=== PATIENT | female | born 1940 | race Caucasian/White ===

== ENCOUNTER 2017-06-23 10:37 | Emergency (ER) | payer MEDICARE, OTHER ==
[~2017-06-23] VITALS: Ht 170.2 cm; Wt 107.0 kg
[~2017-06-23 10:37] MED LIST: ASPI81TA17 PO; CALC500T42 PO; CO Q100C9 PO; DICY1TAB26 PO; GLUC15002 PO; LISI30TA44 PO; MAGN250T13 PO; METO25CR PO; OMEG5CAP; OMEP20TA PO; VITA20003 PO; ZOCO20TA PO
[2017-06-23 10:39] VITALS: BP 151/67; PULSE 81; RESP 18; TEMP 98.3; O2SAT 96
[2017-06-23 11:00] VITALS: BP 143/71; PULSE 74; RESP 17; O2SAT 96
[2017-06-23] MEDS ORDERED: LISI30TA4 PO (11:07)
[2017-06-23] MEDS ORDERED: Chondroitin PO (11:07)
[2017-06-23] MEDS ORDERED: ASPI81CH37 CHEW (11:07)
[2017-06-23] MEDS ORDERED: METO25TA3 PO (11:07)
[2017-06-23] MEDS ORDERED: GLUC15009 PO (11:07)
[2017-06-23] MEDS ORDERED: METO50TA PO (11:07)
[2017-06-23] MEDS ORDERED: OMEP20TA PO (11:07)
[2017-06-23] MEDS ORDERED: SIMV20TA PO (11:07)
[2017-06-23] MEDS ORDERED: FISH1200 PO (11:07)
[2017-06-23] MEDS ORDERED: CALG500 PO (11:07)
[2017-06-23] MEDS ORDERED: CHOL20005 PO ×2 (11:07)
[2017-06-23] MEDS ORDERED: FISH1200 (11:07)
[2017-06-23] MEDS ORDERED: CHOL1CAP14 PO (11:07)
[2017-06-23] MEDS ORDERED: METR-1 PO (11:11)
[2017-06-23] MEDS ORDERED: CIPR500T2 PO (11:11)
--- NOTE | 2017-06-23 11:11 | PD ---
HPI Chief Complaint: Abdominal Pain Time Seen by Provider: 11:07 Travel History International Travel<30 days: No Contact w/Intl Traveler<30days: No Traveled to known affect area: No History of Present Illness HPI This is a 76-year-old female who has a history of recurring diverticulitis who presents to the emergency department with 3 days of left lower quadrant abdominal cramping, constant, moderate severity, associated with loose stools. She denies any fevers or chills and denies any vomiting. She said diverticulitis many times in the past and this feels exactly the same. She's never had a complication from it. She's had a cholecystectomy but no other bowel surgeries. She is otherwise healthy. She is a snowbird from [place]. She said she called her primary care physician on Saturday but they couldn't get her in. Otherwise she would not have come to the emergency department. PFSH Past Medical History Hx Anticoagulant Therapy: Yes (81 mg asa) Cardiovascular Problems: Yes High Cholesterol: Yes Diverticulitis: Yes Hypertension: Yes ?: Not Menopausal: Yes Past Surgical History Cholecystectomy: Yes Tonsillectomy: Yes Social History Alcohol Use: Yes ([facility]) Tobacco Use: No Substance Use: No Allergies-Medications (Allergen,Severity, Reaction): Coded Allergies: hydrocodone (Verified Allergy, Unknown, GI UPSET, 06/23/17) Reported Meds & Prescriptions Reported Meds & Active Scripts Active Review of Systems Except as stated in HPI: all other systems reviewed are Neg Physical Exam Narrative GENERAL:Well appearing, no acute distress SKIN: Focused skin assessment warm and dry. HEAD: Atraumatic. Normocephalic. EYES: Pupils equal and round. No injection or drainage. ENT: Moist mucous membranes NECK: Trachea midline. CARDIOVASCULAR: Regular rate and rhythm. No murmur appreciated. RESPIRATORY: Clear to auscultation. Breath sounds equal bilaterally. GASTROINTESTINAL: Abdomen soft, tender to palpation in the left lower quadrant with no guarding. MUSCULOSKELETAL: No obvious deformities. NEUROLOGICAL: Awake and alert. No obvious cranial nerve deficits. Moving all extremities. PSYCHIATRIC: Appropriate mood and affect; insight and judgment normal. Data Data Last Documented VS Vital Signs Date Time Temp Pulse Resp B/P (MAP) Pulse Ox O2 Delivery O2 Flow Rate FiO2 06/23/17 10:39 98.3 81 18 151/67 (95) 96 MDM Medical Decision Making Medical Screen Exam Complete: Yes Emergency Medical Condition: Yes Differential Diagnosis Diverticulitis, colitis, urinary tract infection, diverticular abscess, bowel obstruction Narrative Course This is a very well-appearing 76-year-old female who presents to the emergency department with left lower quadrant abdominal pain that feels exactly like her prior episodes of diverticulitis. She is afebrile and well-appearing. She feels like this is mild and in the past it's gotten much worse. She wanted to try to "address it early". At this point I don't think there is any reason to obtain labs or CT imaging. She appears quite well and I doubt that there is a surgical complication at this time. She'll be discharged on oral antibiotic therapy, clear liquid diet and she promises she'll return to the emergency department if her symptoms worsen. Diagnosis Primary Impression: Acute diverticulitis Patient Instructions: General Instructions Additional Instructions: Sometimes patients with diverticulitis require admission to the hospital for IV antibiotics. If you develop worsening or severe abdominal pain, persistent fevers, or inability to drink return to the emergency department. Follow a clear liquid diet for 3 days until you notice your symptoms improving, then slowly advance your diet. Complete your course of antibiotics. Follow up with your primary care physician as soon as possible to ensure you are improving. Med/Other Pt SpecificInfo: Prescription(s) given Scripts Metronidazole (Flagyl) 500 Mg Tab 500 MG PO TID for Infection for 7 Days, TAB 0 Refills Prov: Britt Hurtado MD 06/23/17 Ciprofloxacin (Ciprofloxacin) 500 Mg Tab 500 MG PO BID for Infection for 7 Days, #14 TAB 0 Refills Prov: Britt Hurtado MD 06/23/17 Disposition: 01 DISCHARGE HOME Condition: Stable Britt Hurtado MD Jun 23, 2017 11:11
== END 2017-06-23 11:29 | disposition home or self-care (01) ==
LOC: PHED 10:37
DX: K57.92 Diverticulitis of intestine, part unspecified, without perforation or abscess without bleeding (principal)
CPT/HCPCS: 99284

== ENCOUNTER 2017-08-28 07:51 | Emergency (ER) | payer MEDICARE, OTHER ==
[~2017-08-28] VITALS: Ht 170.2 cm; Wt 105.8 kg
[~2017-08-28 07:51] MED LIST changes: +ASPI81CH6 CHEW; -ASPI81TA17 PO; -CALC500T42 PO; +CALG500 PO; +CIPR500T2 PO; -CO Q100C9 PO; +Chondroitin PO; +D 50CAP2 PO; +D200CAP PO; -DICY1TAB26 PO; +FISH1200; +FISH1200 PO; -GLUC15002 PO; +GLUC15009 PO; +LISI30TA4 PO; -LISI30TA44 PO; -MAGN250T13 PO; -METO25CR PO; +METO25TA3 PO; +METO50TA PO; +METR-1 PO; -OMEG5CAP; -OMEP20TA PO; +OMEP20TA93 PO; +SIMV20TA PO; -VITA20003 PO; -ZOCO20TA PO
[2017-08-28 07:52] VITALS: BP 186/79; PULSE 89; RESP 16; TEMP 97.9; O2SAT 96
[2017-08-28 08:15] LABS: BILIRUBIN, URINE NEG (NEG); BLOOD, URINE NEG (NEG); GLUCOSE,URINE NEG (NEG); KETONE, URINE NEG (NEG); NITRITE,URINE NEG (NEG); URINE LEUKOCYTE ESTERASE NEG (NEG)
[2017-08-28] MEDS ORDERED: SODIUM CHLORID 0.9% 500 ML INJ 500 ML IV ONE (08:15)
[2017-08-28] MEDS ORDERED: SODIUM CHLORIDE 0.9% FLUSH 10 ML FLUSH IV FLUSH PRN (08:15)
--- NOTE | 2017-08-28 08:19 | PD ---
HPI Chief Complaint: GI Complaint Time Seen by Provider: 08:15 Travel History International Travel<30 days: No Contact w/Intl Traveler<30days: No Traveled to known affect area: No History of Present Illness HPI 77-year-old female patient with history of diverticulitis, presents to the ER today because she states that she has had a one-week history of constipation, and is now having a lot of discomfort which she states is currently fairly mild at the left lower quadrant area where her diverticulitis issues of been. She denies any vomiting, fevers, or any other symptoms. She states that she is worried that her diverticulitis may be acting up. She states that at the beginning of the week she had been on Cipro and amoxicillin, and then started having loose stools, and started taking probiotics but now she is constipated. Modifying Factors: None Associated Signs & Symptoms: Constipation, left lower quadrant abdominal pain Risk Factors: Diverticulitis PFSH Past Medical History Hx Anticoagulant Therapy: Yes (asa 81mg ) Atrial Fibrillation: Yes Heart Rhythm Problems: Yes Cardiovascular Problems: Yes (htn on meds, hx of a-fib) High Cholesterol: Yes Diverticulitis: Yes GERD: Yes Hypertension: Yes Immunizations Current: Yes (Shingles shot 2017) Tetanus Vaccination: < 5 Years Influenza Vaccination: Yes ?: Not Menopausal: Yes Dilation and Curettage (D&C): Yes (x1) Past Surgical History Cholecystectomy: Yes Ear Surgery: Yes (right inner cyst removed) Tonsillectomy: Yes Social History Alcohol Use: Yes (occas. wine) Tobacco Use: No (quit in the 's smoked cigs) Substance Use: No Allergies-Medications (Allergen,Severity, Reaction): Coded Allergies: hydrocodone (Verified Allergy, Unknown, GI UPSET, 08/28/17) Reported Meds & Prescriptions Reported Meds & Active Scripts Active Zofran Odt (Ondansetron Odt) 4 Mg Tab 4 Mg SL Q6HR PRN Ibuprofen 600 Mg Tab 600 Mg PO Q6H PRN Ciprofloxacin (Ciprofloxacin HCl) 500 Mg Tab 500 Mg PO BID 7 Days Flagyl (Metronidazole) 500 Mg Tab 500 Mg PO TID 7 Days Reported [Chondroitin] 1,200 PO DAILY Glucosamine 1,500 Mg Tab 1,500 Mg PO DAILY Calcium Gluconate 45 Mg Calcium (500 Mg) Tab 500 Mg PO DAILY 1 gram of salt is 93 mg elemental calcium. Fish Oil 1200 mg (Perkins-3 Fatty Acids) 360 Mg-1,200 Mg Cap 1,200 Mg PO BID D3 Super Strength (Cholecalciferol) 2,000 Unit Cap 2,000 Units PO BID Metoprolol Tartrate 50 Mg Tab 50 Mg PO DAILY Simvastatin 20 Mg Tab 20 Mg PO HS Lisinopril 30 Mg Tab 30 Mg PO DAILY Omeprazole 20 Mg Tab 20 Mg PO DAILY Aspirin Low Dose (Aspirin) 81 Mg Chew 81 Mg CHEW 2XWEEK Review of Systems Except as stated in HPI: all other systems reviewed are Neg Physical Exam Narrative GENERAL: Well-developed elderly white female patient currently in mild distress. Awake and oriented 3. SKIN: Focused skin assessment warm/dry. HEAD: Atraumatic. Normocephalic. EYES: Pupils equal and round. No scleral icterus. No injection or drainage. ENT: No nasal bleeding or discharge. Mucous membranes pink and moist. NECK: Trachea midline. No JVD. Supple. CARDIOVASCULAR: Regular rate and rhythm. No murmur appreciated. RESPIRATORY: No accessory muscle use. Clear to auscultation. Breath sounds equal bilaterally. GASTROINTESTINAL: Abdomen soft, mild left lower quadrant tenderness without guarding or rebound, nondistended. Hepatic and splenic margins not palpable. MUSCULOSKELETAL: No obvious deformities. No clubbing. No cyanosis. No edema. NEUROLOGICAL: Awake and alert. No obvious cranial nerve deficits. Motor grossly within normal limits. Normal speech. PSYCHIATRIC: Appropriate mood and affect; insight and judgment normal. Data Data Last Documented VS Vital Signs Date Time Temp Pulse Resp B/P (MAP) Pulse Ox O2 Delivery O2 Flow Rate FiO2 08/28/17 10:42 78 17 164/74 (104) 94 Room Air 08/28/17 07:52 97.9 Orders Orders Urinalysis - C+S If Indicated (08/28/17 07:53) Complete Blood Count With Diff (08/28/17 08:15) Comprehensive Metabolic Panel (08/28/17 08:15) Lipase (08/28/17 08:15) Ct Abd/Pel W Iv Contrast(Rout) (08/28/17 08:15) Iv Access Insert/Monitor (08/28/17 08:15) Ecg Monitoring (08/28/17 08:15) Oximetry (08/28/17 08:15) Sodium Chloride 0.9% Flush (Ns Flush) (08/28/17 08:15) Sodium Chlorid 0.9% 500 Ml Inj (Ns 500 M (08/28/17 08:15) Oral Contrast - Adult (08/28/17 08:22) Diatrizoate Liq ( Gastroview Liq) (08/28/17 08:38) Iohexol 350 Inj (Omnipaque 350 Inj) (08/28/17 10:20) Ed Discharge Order (08/28/17 10:47) Labs Laboratory Tests Test 08/28/17 08:03 08/28/17 09:10 Urine Color YELLOW Urine Turbidity CLEAR Urine pH 5.0 Urine Specific [place] 1.017 Urine Protein NEG mg/dL Urine Glucose (UA) NEG mg/dL Urine Ketones NEG mg/dL Urine Occult Blood NEG Urine Nitrite NEG Urine Bilirubin NEG Urine Leukocyte Esterase NEG Urine RBC 0-3 /hpf Urine WBC 3-5 /hpf Urine Squamous Epithelial Cells > 8 /hpf Urine Bacteria RARE /hpf Urine Hyaline Casts 0-2 /lpf Microscopic Urinalysis Comment CULT NOT INDICATED White Blood Count 11.0 TH/MM3 Red Blood Count 4.39 MIL/MM3 Hemoglobin 13.0 GM/DL Hematocrit 40.1 % Mean Corpuscular Volume 91.2 FL Mean Corpuscular Hemoglobin 29.6 PG Mean Corpuscular Hemoglobin Concent 32.5 % Red Cell Distribution Width 13.2 % Platelet Count 282 TH/MM3 Mean Platelet Volume 7.9 FL Neutrophils (%) (Auto) 65.8 % Lymphocytes (%) (Auto) 19.4 % Monocytes (%) (Auto) 10.8 % Eosinophils (%) (Auto) 3.4 % Basophils (%) (Auto) 0.6 % Neutrophils # (Auto) 7.2 TH/MM3 Lymphocytes # (Auto) 2.1 TH/MM3 Monocytes # (Auto) 1.2 TH/MM3 Eosinophils # (Auto) 0.4 TH/MM3 Basophils # (Auto) 0.1 TH/MM3 CBC Comment DIFF FINAL Differential Comment Blood Urea Nitrogen 20 MG/DL Creatinine 0.91 MG/DL Random Glucose 125 MG/DL Total Protein 6.8 GM/DL Albumin 2.7 GM/DL Calcium Level 8.4 MG/DL Alkaline Phosphatase 58 U/L Aspartate Amino Transf (AST/SGOT) 20 U/L Alanine Aminotransferase (ALT/SGPT) 34 U/L Total Bilirubin 0.4 MG/DL Sodium Level 137 MEQ/L Potassium Level 4.1 MEQ/L Chloride Level 104 MEQ/L Carbon Dioxide Level 27.7 MEQ/L Anion Gap 5 MEQ/L Estimat Glomerular Filtration Rate 60 ML/MIN Lipase 156 U/L MDM Medical Decision Making Medical Screen Exam Complete: Yes Emergency Medical Condition: Yes Medical Record Reviewed: Yes Interpretation(s) Laboratory Tests Test 08/28/17 08:03 08/28/17 09:10 Urine Squamous Epithelial Cells > 8 /hpf (0-5) Urine Bacteria RARE /hpf (NONE) Monocytes (%) (Auto) 10.8 % (0.0-8.0) Monocytes # (Auto) 1.2 TH/MM3 (0-0.9) Blood Urea Nitrogen 20 MG/DL (7-18) Random Glucose 125 MG/DL (74-106) Albumin 2.7 GM/DL (3.4-5.0) Calcium Level 8.4 MG/DL (8.5-10.1) Estimat Glomerular Filtration Rate 60 ML/MIN (>89) Differential Diagnosis Left lower quadrant pains, constipation: Colitis versus constipation versus diverticulitis versus UTI Narrative Course Lab work did not indicate any metabolic issues. Vital signs are stable in the ER. CAT scan shows diverticulitis. At this point, my plan would be to treat her for diverticulitis and have her follow-up with primary care doctor. Return for any worsening in symptoms as necessary. The plan has been discussed with her and she states understanding. Diagnosis Primary Impression: Diverticulitis Med/Other Pt SpecificInfo: Prescription(s) given Scripts Fluconazole (Diflucan) 150 Mg Tab 150 MG PO ONCE for Infection, #1 TAB 0 Refills Prov: Brian Montoya MD 08/28/17 Ondansetron Odt (Zofran Odt) 4 Mg Tab 4 MG SL Q6HR Y for Nausea/Vomiting, #7 TAB 0 Refills Prov: Brian Montoya MD 08/28/17 Ibuprofen (Ibuprofen) 600 Mg Tab 600 MG PO Q6H Y for Pain/Inflammation, #20 TAB 0 Refills Prov: Brian Montoya MD 08/28/17 Ciprofloxacin (Ciprofloxacin) 500 Mg Tab 500 MG PO BID for Infection for 7 Days, #14 TAB 0 Refills Prov: Brian Montoya MD 08/28/17 Metronidazole (Flagyl) 500 Mg Tab 500 MG PO TID for Infection for 7 Days, TAB 0 Refills Prov: Brian Montoya MD 08/28/17 Disposition: 01 DISCHARGE HOME Condition: Stable Brian Montoya MD Aug 28, 2017 08:19
[2017-08-28 08:28] LABS: HYALINE CAST, URINE 0-2 /lpf (RARE); RBC, URINE 0-3 /hpf (0-3); SQUAMOUS EPITHELIAL CELL URINE > 8 /hpf (0-5); URINE COLOR YELLOW (YELLW/STRAW)
[2017-08-28 08:29] LABS: BACTERIA, URINE RARE /hpf
[2017-08-28] MEDS ORDERED: DIATRIZOATE MEGLUM/DIATRIZOATE SOD 9 ML CUP ONE (08:38)
[2017-08-28 08:52] VITALS: BP_SYST 188; BP_DIAS 84; BP_DIAS 86; PULSE 85; PULSE 88; RESP 17; RESP 18; O2SAT 94; O2SAT 95
[2017-08-28 09:19] LABS: AUTOMATED NEUTROPHIL # 7.2 TH/MM3 (1.8-7.7); BASOPHIL # 0.1 TH/MM3 (0-0.2); BASOPHIL % 0.6 % (0.0-2.0); EOSINOPHIL # 0.4 TH/MM3 (0-0.4); EOSINOPHIL % 3.4 % (0.0-4.0); HEMATOCRIT 40.1 % (35.0-46.0); LYMPH % 19.4 % (9.0-44.0); LYMPHOCYTE # 2.1 TH/MM3 (1.0-4.8); MEAN CELL VOLUME 91.2 FL (80.0-100.0); MEAN CORPUSCULAR HEMOGLOBIN 29.6 PG (27.0-34.0); MEAN CORPUSCULAR HGB CONC 32.5 % (32.0-36.0); MEAN PLATELET VOLUME 7.9 FL (7.0-11.0); MONO % 10.8 % (0.0-8.0); MONOCYTE # 1.2 TH/MM3 (0-0.9); NEUT % 65.8 % (16.0-70.0); PLATELET COUNT 282 TH/MM3 (150-450); RED BLOOD COUNT 4.39 MIL/MM3 (4.00-5.30); RED CELL DISTRIBUTION WIDTH 13.2 % (11.6-17.2)
[2017-08-28 09:51] LABS: CALCIUM 8.4 MG/DL (8.5-10.1)
[2017-08-28 09:52] LABS: ALBUMIN 2.7 GM/DL (3.4-5.0); BICARBONATE 27.7 MEQ/L (21.0-32.0); BLOOD UREA NITROGEN 20 MG/DL (7-18); GLUCOSE,RANDOM 125 MG/DL (74-106)
[2017-08-28 09:55] LABS: ALT (GPT) 34 U/L (10-53); AST (GOT) 20 U/L (15-37); CREATININE 0.91 MG/DL (0.50-1.00); GLOMERULAR FILTRATION RATE 60 ML/MIN (>89); LIPASE 156 U/L (73-393)
[2017-08-28 09:57] LABS: CHLORIDE 104 MEQ/L (98-107); SODIUM (NA) 137 MEQ/L (136-145)
[2017-08-28 09:58] LABS: ALKALINE PHOSPHATASE 58 U/L (45-117)
[2017-08-28 09:59] LABS: TOTAL PROTEIN 6.8 GM/DL (6.4-8.2)
[2017-08-28 10:06] LABS: TOTAL BILIRUBIN ADULT 0.4 MG/DL (0.2-1.0)
[2017-08-28 10:15] VITALS: BP 182/80; PULSE 78; RESP 18
[2017-08-28] MEDS ORDERED: IOHEXOL 350 MG/ML 10 ML VIAL (for RAD DIAG) IVCONTRAST ONE (10:20)
[2017-08-28 10:42] VITALS: BP 164/74; PULSE 78; RESP 17; O2SAT 94
--- NOTE | 2017-08-28 10:42 | RADRPT ---
EXAM DATE/TIME: 08/28/2017 10:04 [facility] COMPARISON: CT ABDOMEN & PELVIS W CONTRAST, August 27, 2015, 12:21. INDICATIONS : Left lower quadrant pain and constipation. IV CONTRAST: 92 cc Omnipaque 350 (iohexol) IV ORAL CONTRAST: Prescribed oral contrast ingested. RADIATION DOSE: 23.50 CTDIvol (mGy) MEDICAL HISTORY : Hypertension. SURGICAL HISTORY : Cholecystectomy. ENCOUNTER: Initial ACUITY: 1 week PAIN SCALE: 4/10 LOCATION: Left lower quadrant TECHNIQUE: Volumetric scanning of the abdomen and pelvis was performed. Using automated exposure control and ad justment of the mA and/or kV according to patient size, radiation dose was kept as low as reasonably achievable to obtain optimal diagnostic quality images. DICOM format image data is available electro nically for review and comparison. FINDINGS: LOWER LUNGS: The visualized lower lungs are clear. LIVER: Homogeneous density without lesion. There is no dilation of the biliary tree. There is moderate hepa tic steatosis again noted. The patient is status post cholecystectomy. SPLEEN: Normal size without lesion. PANCREAS: Within normal limits. KIDNEYS: Normal in size and shape. There is no mass, stone or hydronephrosis. ADRENAL GLANDS: Within normal limits. VASCULAR: There is no aortic aneurysm. BOWEL/MESENTERY: There is focal wall thickening and mild inflammatory change involving the proximal sigmoid colon with wispy soft tissue densities in the adjacent mesentery. There is an inflamed diverticuli with additio nal adjacent diverticuli. There is no free air or fluid. The bowel gas pattern is nonobstructive. ABDOMINAL WALL: Within normal limits. RETROPERITONEUM: There is no lymphadenopathy. BLADDER: No wall thickening or mass. REPRODUCTIVE: Within normal limits. INGUINAL: There is no lymphadenopathy or hernia. MUSCULOSKELETAL: Within normal limits for patient age. CONCLUSION: 1. Acute diverticulitis involving the proximal sigmoid colon with no free air or fluid. 2. Moderate hepatic steatosis. 3. Status post cholecystectomy. Jalen Pope MD on August 28, 2017 at 10:38 Board Certified Radiologist. This report was verified electronically.
[2017-08-28] MEDS ORDERED: CIPR500T2 PO (10:47)
[2017-08-28] MEDS ORDERED: METR-1 PO (10:47)
[2017-08-28] MEDS ORDERED: ZOFR4TAB3 SL (10:47)
[2017-08-28] MEDS ORDERED: IBUP-232 PO (10:47)
[2017-08-28] MEDS ORDERED: DIFL150T PO (10:54)
[2017-08-28 11:01] VITALS: BP 163/74
== END 2017-08-28 11:04 | disposition home or self-care (01) ==
LOC: PHED 07:51
DX: K57.92 Diverticulitis of intestine, part unspecified, without perforation or abscess without bleeding (principal); R10.32 Left lower quadrant pain; I10 Essential (primary) hypertension; Z79.82 Long term (current) use of aspirin
CPT/HCPCS: 74177; 80053; 81001; 83690; 85025; 96360; 99285; J7040; Q9963; Q9967

== ENCOUNTER → 2017-10-25 | Outpatient (CLI) | payer MEDICARE, OTHER ==
[~2017-10-25] MED LIST changes: +COQ-100C5 PO; -D 50CAP2 PO; +DIFL150T PO; -FISH1200; +GLUCTAB6 PO; +HYDR12.56 PO; +IBUP-232 PO; +MAGN500T2 PO; +ZOFR4TAB3 SL
[2017-10-25 10:46] LABS: AUTOMATED NEUTROPHIL # 2.6 TH/MM3 (1.8-7.7); BASOPHIL # 0.1 TH/MM3 (0-0.2); EOSINOPHIL # 0.2 TH/MM3 (0-0.4); EOSINOPHIL % 3.9 % (0.0-4.0); HEMATOCRIT 38.7 % (35.0-46.0); HEMOGLOBIN 13.2 GM/DL (11.6-15.3); LYMPH % 39.5 % (9.0-44.0); LYMPHOCYTE # 2.3 TH/MM3 (1.0-4.8); MEAN CORPUSCULAR HEMOGLOBIN 31.1 PG (27.0-34.0); MEAN CORPUSCULAR HGB CONC 34.2 % (32.0-36.0); MEAN PLATELET VOLUME 8.4 FL (7.0-11.0); MONO % 10.3 % (0.0-8.0); MONOCYTE # 0.6 TH/MM3 (0-0.9); NEUT % 45.3 % (16.0-70.0); PLATELET COUNT 239 TH/MM3 (150-450); RED BLOOD COUNT 4.25 MIL/MM3 (4.00-5.30); RED CELL DISTRIBUTION WIDTH 13.9 % (11.6-17.2); WHITE BLOOD COUNT 5.7 TH/MM3 (4.0-11.0)
[2017-10-25 10:52] LABS: INTERNATIONAL NORMALIZED RATIO 0.9 RATIO; PROTHROMBIN TIME - PATIENT 9.6 SEC (9.8-11.6)
[2017-10-25 11:08] LABS: ALBUMIN 3.2 GM/DL (3.4-5.0); ALT (GPT) 37 U/L (10-53); AST (GOT) 23 U/L (15-37); BICARBONATE 29.2 MEQ/L (21.0-32.0); BLOOD UREA NITROGEN 24 MG/DL (7-18); CALCIUM 8.7 MG/DL (8.5-10.1); CHLORIDE 104 MEQ/L (98-107); CREATININE 0.96 MG/DL (0.50-1.00); GLOMERULAR FILTRATION RATE 57 ML/MIN (>89); GLUCOSE,FASTING 102 MG/DL (74-99); SODIUM (NA) 139 MEQ/L (136-145)
[2017-10-25 11:10] LABS: ALKALINE PHOSPHATASE 49 U/L (45-117); TOTAL BILIRUBIN ADULT 0.4 MG/DL (0.2-1.0); TOTAL PROTEIN 6.9 GM/DL (6.4-8.2)
--- NOTE | 2017-10-25 11:26 | RADRPT ---
EXAM DATE/TIME: 10/25/2017 10:45 [facility] COMPARISON: ABDOMEN FLAT & UPRIGHT, September 27, 2014, 7:50. INDICATIONS : Evaluate for pneumonia, pneumothorax, or communicable disease. Pre-op sigmoid resection. MEDICAL HISTORY : Diverticulitis. Hypertension A-fib. SURGICAL HISTORY : Cholecystectomy. ENCOUNTER: Initial ACUITY: 1 day PAIN SCORE: 0/10 LOCATION: Bilateral chest FINDINGS: The heart is mildly enlarged. There are chronic interstitial changes within the pulmonary parenchyma. The lungs are otherwise clear. There mild degenerative changes within thoracic spine. CONCLUSION: No acute cardiopulmonary findings. Abilio Diallo MD on October 25, 2017 at 11:24 Board Certified Radiologist. This report was verified electronically.
[2017-10-25 13:03] LABS: BACTERIA, URINE RARE /hpf; BILIRUBIN, URINE NEG (NEG); BLOOD, URINE NEG (NEG); GLUCOSE,URINE NEG (NEG); KETONE, URINE NEG (NEG); NITRITE,URINE NEG (NEG); PH, URINE 5.5 (5.0-8.5); SQUAMOUS EPITHELIAL CELL URINE 3 /hpf (0-5); URINE COLOR YELLOW (YELLW/STRAW); URINE LEUKOCYTE ESTERASE NEG (NEG)
--- NOTE | 2017-10-25 13:56 | EKG ---
Date Performed: 10/25/2017 Time Performed: 10:23:16 PTAGE: 77 years EKG: SINUS BRADYCARDIA LOW QRS VOLTAGE IN PRECORDIAL LEADS BORDERLINE ECG NO PREVIOUS TRACING 10/25/2017 1023 DOCTOR: Poonam Carrera Interpretating Date/Time 10/25/2017 13:55:24
== END ==
LOC: CPRE 09:28
PROVIDERS: ATTEND Colon & Rectal Surgery
DX: Z01.810 Encounter for preprocedural cardiovascular examination (principal); Z01.818 Encounter for other preprocedural examination; Z01.812 Encounter for preprocedural laboratory examination; K57.32 Diverticulitis of large intestine without perforation or abscess without bleeding; R94.31 Abnormal electrocardiogram [ECG] [EKG]
CPT/HCPCS: 36415; 71046; 80053; 81001; 85025; 85610; 85730; 93005

== ENCOUNTER 2017-11-01 06:11 | Inpatient (IN) | payer MEDICARE, OTHER ==
[~2017-11-01] VITALS: Ht 171.4 cm; Wt 112.2 kg
[~2017-11-01 06:11] MED LIST changes: -CIPR500T2 PO; -Chondroitin PO; -DIFL150T PO; -GLUC15009 PO; -IBUP-232 PO; -METR-1 PO; -ZOFR4TAB3 SL
[2017-11-01] MEDS ORDERED: SODIUM CHLORID 0.9% 500 ML IV PRN (06:45)
[2017-11-01] MEDS ORDERED: METOPROLOL TARTRATE 25 MG TAB PO PRN (06:45)
[2017-11-01] MEDS ORDERED: LACTATED RINGER'S 1000 ML IV PRN (06:45)
[2017-11-01] MEDS ORDERED: DEXT 5%-NACL 0.9% 1000 ML INJ 1,000 ML IV SCH (06:45)
[2017-11-01] MEDS ORDERED: POVIDONE IODINE 5% (ANTISEPSIS KIT) 4 APPLICATIONS EACH NARE PRN (06:45)
[2017-11-01] MEDS ORDERED: CHLORHEXIDINE GLUCONATE 2 % 1 PACK (2 CLOTHS) TOPICAL PRN (06:45)
[2017-11-01] MEDS ORDERED: METRONIDAZOLE 500 MG/100 ML ISONTONIC SOLN IV SCH (06:45)
[2017-11-01] MEDS ORDERED: ceFAZolin 2 GM PREMIX 50 ML IV SCH (06:45)
--- NOTE | 2017-11-01 10:01 | PD.OP ---
Operative Report Date of Surgery: Nov 01, 2017 Preoperative Diagnosis: (1) Diverticulitis Postoperative Diagnosis: (1) Diverticulitis Procedure: Cystoscopy and placement of bilateral ureteral catheters Anesthesia: General Surgeon: uJan Hicks Crib Tender(s): None Operation and Findings: Indication for procedures: Consulted intraoperatively to pass bilateral ureteral catheters to aid in visualization of this patient's ureters during her colorectal procedure. Urologic surgery procedures in detail: Concurrent with the colorectal surgeon Dr. Castillo, I proceeded with cystoscopy and placement of bilateral ureteral catheters as follows. Initially cystoscopic evaluation was performed utilizing the rigid cystoscope with the 22 [place] sheath and the 30 lens. Both right and left ureteral orifices were correct anatomic position draining clear yellow urine. There were no body mucosal lesions, calculi or diverticula formation. There are no areas suspicious for fistula formation. I then proceeded with passing a sensor 0.035 wire up the patient's left ureter until a small amount of resistance was met. I then proceeded with placing a 6 [place] open-ended ureteral catheter over the wire 25 cm in a cephalad direction. With the catheter in place the wire was withdrawn and reintroduced through secondary site via the cystoscope. In similar fashion the contralateral side was accomplished. With both ureteral catheters in place, the cystoscope and wire were withdrawn and a 16 [place]er 10 cc Cooper catheter was placed. The ureteral catheters were then anchored to the Cooper via a connector and all 3 catheters placed to gravity drainage. This completes the urologic surgery portion of combined procedures on this patient. Juan Hicks MD Nov 01, 2017 10:01
[2017-11-01] MEDS ORDERED: PROPOFOL 200 MG/20 ML AMP IV ONE (12:00)
[2017-11-01] MEDS ORDERED: ONDANSETRON HCL 4 MG/2 ML VIAL IV ONE (12:00)
[2017-11-01] MEDS ORDERED: STERILE WATER FOR INJECTION 20 ML VIAL IV ONE (12:00)
[2017-11-01] MEDS ORDERED: VECURONIUM BROMIDE 20 MG VIAL IV ONE (12:00)
[2017-11-01] MEDS ORDERED: NEOSTIGMINE 5 MG/5 ML SYRINGE IV PUSH ONE (12:00)
[2017-11-01] MEDS ORDERED: LACTATED RINGER'S 1000 ML INJ 2,000 ML IV ONE (12:00)
[2017-11-01] MEDS ORDERED: GLYCOPYRROLATE 1 MG/5 ML SYRINGE IV PUSH ONE (12:00)
[2017-11-01] MEDS ORDERED: PHENYLEPH/NS 1000 MCG/10 ML SYR IV ONE (12:00)
[2017-11-01] MEDS ORDERED: ROCURONIUM INJ 50 MG/5 ML SYRINGE IV PUSH ONE (12:00)
[2017-11-01] MEDS ORDERED: SODIUM CHLORID 0.9% 500 ML INJ 500 ML IV ONE ×3 (12:00→16:30)
[2017-11-01] MEDS ORDERED: DEXAMETHASONE SOD PHOS 4 MG/ML VIAL IV ONE (12:00)
[2017-11-01] MEDS ORDERED: LIDOCAINE HCL 1% PF 5 ML SYRINGE OTHER ONE (12:00)
[2017-11-01] MEDS ORDERED: MORPHINE SULFATE 30 MG/30 ML PCA IV SCH (12:45)
[2017-11-01] MEDS ORDERED: POTASSIUM CHLOR 40 MEQ PREMIX 100 ML IV PRN (12:45)
[2017-11-01] MEDS ORDERED: ENALAPRILAT 2.5 MG/2 ML VIAL IV PUSH PRN (12:45)
[2017-11-01] MEDS ORDERED: Post-op Orders (for Pharmacy) XX ONE (12:45)
[2017-11-01] MEDS ORDERED: NALOXONE HCL 0.4 MG/ML AMP IV PUSH PRN (12:45)
[2017-11-01] MEDS ORDERED: ACETAMINOPHEN 325 MG TAB PO PRN (12:45)
[2017-11-01] MEDS ORDERED: diphenhydrAMINE HCL 50 MG/ML VIAL IV PUSH PRN (12:45)
[2017-11-01] MEDS ORDERED: oxyCODONE/ACETAMINOPHEN 5 MG/325 MG TAB PO PRN ×2 (12:45)
[2017-11-01] MEDS ORDERED: POTASSIUM CHLOR 20 MEQ PREMIX 100 ML IV PRN (12:45)
[2017-11-01] MEDS ORDERED: BENZOCAINE 6 MG/MENTHOL 10 MG LOZENGE BUCCAL PRN (12:45)
[2017-11-01] MEDS ORDERED: DO NOT ADM ANY ANTICOAGULANT DRUGS PRN (13:00)
[2017-11-01] MEDS: KETOROLAC TROMETHAMINE 30 MG/ML (IVP) VIAL IVP SCH ×2 (13:00→19:00)
[2017-11-01] MEDS ORDERED: MORPHINE SULFATE 4 MG/ML INJ ONE (13:06)
[2017-11-01] MEDS ORDERED: MIDAZOLAM HCL 2 MG/2 ML VIAL ONE (13:06)
[2017-11-01] MEDS ORDERED: *morphine SULFATE 10 MG/ML PERIprocedure ONLY ONE (13:16)
[2017-11-01 13:37] LABS: AUTOMATED NEUTROPHIL # 6.1 TH/MM3 (1.8-7.7); BASOPHIL % 0.4 % (0.0-2.0); EOSINOPHIL # 0.1 TH/MM3 (0-0.4); EOSINOPHIL % 0.7 % (0.0-4.0); HEMATOCRIT 38.4 % (35.0-46.0); HEMOGLOBIN 13.2 GM/DL (11.6-15.3); LYMPH % 19.4 % (9.0-44.0); LYMPHOCYTE # 1.6 TH/MM3 (1.0-4.8); MEAN CELL VOLUME 90.9 FL (80.0-100.0); MEAN CORPUSCULAR HEMOGLOBIN 31.2 PG (27.0-34.0); MEAN CORPUSCULAR HGB CONC 34.3 % (32.0-36.0); MEAN PLATELET VOLUME 8.3 FL (7.0-11.0); MONO % 6.9 % (0.0-8.0); MONOCYTE # 0.6 TH/MM3 (0-0.9); NEUT % 72.6 % (16.0-70.0); PLATELET COUNT 247 TH/MM3 (150-450); RED BLOOD COUNT 4.22 MIL/MM3 (4.00-5.30); RED CELL DISTRIBUTION WIDTH 13.8 % (11.6-17.2); WHITE BLOOD COUNT 8.4 TH/MM3 (4.0-11.0)
[2017-11-01 13:50] LABS: BICARBONATE 25.3 MEQ/L (21.0-32.0); CREATININE 0.85 MG/DL (0.50-1.00)
[2017-11-01] MEDS ORDERED: PILL SPLITTER OTHER PRN (14:30)
[2017-11-01] MEDS: D5-NS + KCL 20 MEQ INJ 1,000 ML IV SCH ×2 (14:30→21:25)
[2017-11-01] MEDS: metroNIDAZOLE 500 MG INJ 100 ML IV SCH (18:00)
--- NOTE | 2017-11-01 18:20 | MP ---
cc: Elizabeth Castillo MD, Kathleen 0 MD [place], DATE OF OPERATION: 11/01/2017 PREOPERATIVE DIAGNOSIS: Diverticulitis. POSTOPERATIVE DIAGNOSIS: Diverticulitis. PROCEDURE: Robotic sigmoid resection. SURGEON: Nikunj Castillo MD RELIGION PROFESSOR: Vimal ANESTHESIA: General per ET tube. ESTIMATED BLOOD LOSS: Less than 100 mL INDICATIONS: The patient is a 77-year-old female with multiple and escalating attacks of diverticulitis. OPERATIVE FINDINGS: Thickened, inflamed sigmoid. The ovaries were normal bilaterally. The uterus has some large fibroids but was smooth and symmetric. The liver was not visualized. PROCEDURE IN DETAIL: The patient was brought to the operating room and placed in a supine position. After induction of general anesthesia, the patient was placed in Yemi stirrups and all bony prominences were carefully padded. The skin of the anterior abdominal wall as well as the perineal area was then prepped and draped in usual sterile fashion. Dr. Hicks then came in and performed cystoscopy with placement of bilateral ureteral catheters. Please see his operative note for details. A site was then chosen for the camera, being located just to the right and above the umbilicus. A 10-12 trocar was placed at this location under direct vision using the laparoscope. CO2 insufflation was then undertaken and the brief abdominal survey was performed with nothing noted that would preclude the robotic approach. The patient was hydroplaned slightly head down and to the left and the #1 10-12 port was placed just inside the right anterior superior iliac spine. The #5 assist port was placed under the right costal margin equal distance to the #1 and the camera port. The patient was hydroplaned further head down and the omentum was brought up and over the transverse colon. At this point, I evaluated the descending colon and she had plenty of length to allow for resection without take down of the splenic flexure. The #3 port was placed on the umbilical line in the left anterior axillary line and the #2 port was placed in the left mid clavicular line just above the umbilical line. Multiple attempts were made to bring the small bowel up and out of the pelvis and to the right, but she had quite a bit of excess bowel as well as fatty tissue within the peritoneal cavity and a very short mesentery. The robot was then docked. The sigmoid colon retracted down and to the left. The peritoneum on the right was scored and dissection was continued in this plane posterior to the vessels until the left ureter was clearly identified and swept away from the specimens. A window was then made around the vessels and a white load of [place] endo stapler was placed across the vessels. This was closed, held for 30 seconds, fired and removed. The resection then continued posteriorly freeing up the descending colon mesentery from the posterior peritoneum. Dissection then continued inferiorly dissecting posterior to the rectum down to the level of the pelvic floor. Dissection was then continued up and around the right and the left side. The lateral peritoneal attachments of the sigmoid colon were then dissected free until we had met our previous dissection circumferentially. A sponge stick was then placed into the pelvis and an area was then chosen for division of the rectum just distal to the rectosigmoid junction. The mesentery at this level was divided using the harmonic scalpel. A blue load [place] endo stapler was then brought onto the field and placed across the bowel at this level. This was closed, held for 30 seconds, fired and removed. The 29 EEA stapler was placed into the anus and advanced to the rectal stump and lay in nice orientation. A small amount of fibrofatty tissue was cleared from the bowel to allow a better anastomosis. At this point, all dissection beds were examined and hemostasis was obtained with electrocautery. The lateral attachments of the descending colon were dissected free to allow a little bit better length for reanastomosis. The robot was then undocked. A 10-12 cm incision was made in the suprapubic area using electrocautery. Dissection and was carried down to the fascia in the anterior abdominal wall, which was split the length of the skin incision. The medial fibers of the rectus abdominis muscle were then divided using electrocautery. The posterior fascia/peritoneum was then divided the length of the skin incision as well. The wound protector was then placed and the proximal stapled end of the bowel was grasped and pulled up and out through the wound protector. A site was chosen for proximal division of the bowel where the bowel was healthy and soft circumferentially. The mesentery at this level was serially divided and ligated using 0 Vicryl ties and the pursestring stapling device was passed off the bowel. The proximal bowel was then amputated and taken to a back table where it was later opened and nothing, with the exception of diverticulitis, was noted. The anvil was 29 EEA stapler was placed into the cut end of the bowel and the previously placed pursestring suture was then secured. A small amount of fibrofatty tissue was cleared of this circumferentially. This was then reduced back into the peritoneal cavity. The posterior fascia at the suprapubic incision was closed in a running fashion using #1 PDS and the anterior fascia was close in a running fashion using #1 PDS. The wound was copiously irrigated with warm normal saline. The 29 EEA stapler was then advanced through the anus and advanced to the rectal stump. The spike was advanced just posterior to the staple line. The anvil was to the spike, being careful that the bowel was not twisted. The stapler was closed, held for 30 seconds, fired and removed, thus creating an enterotomy. The enterotomy appeared pink and healthy circumferentially and lay in a nice orientation without tension. Both anastomotic rings were noted to be complete. A small amount of warm normal saline was placed into pelvis and digital pressure was held proximally as air was insufflated into the rectum. There was no sign of any leakage noted. The air was desufflated to the extent possible and the saline was suctioned out of the pelvis. Surgicel powder was then dusted around and underneath the anastomosis into the pelvis. The anastomosis lay nicely without tension. The omentum was brought down to lay over the anterior surface of the anterior abdominal wall. The posterior fascia of the anterior abdominal wall was then closed in a running fashion using #1 PDS and the anterior fascia was closed in running fashion using #1 PDS. The wound was copiously irrigated with warm normal saline and the skin was closed in a running subcuticular fashion using 3 Vicryl. CO2 insufflation was then resumed and the 10-12 trocar sites were closed using the crossbow device and #1 PDS suture. These were placed but not held until CO2 insufflation was removed. This was removed to the extent possible and all trocars were removed. The fascial sutures were then secured. The trocar sites were copiously irrigated with warm normal saline and the skin was closed in a running subcuticular fashion using 3-0 Vicryl. Steri-Strips and sterile dressing were then applied. All sponge, needle and instrument counts were correct. The patient was returned to the Post Anesthesia Care Unit in stable condition. MD DIANE Marroquin/SA/ , 12:47 PM , 06:04 PM
[2017-11-01] MEDS ORDERED: NORMOSOL R IV ONE ×2 (20:15→21:15)
[2017-11-01] MEDS ORDERED: SODIUM CHLORID 0.9% 500 ML INJ 500 ML IV SCH (20:15)
[2017-11-01] MEDS: METOPROLOL TARTRATE 25 MG TAB PO SCH (21:00)
[2017-11-01] MEDS: PCA - TOTAL MG MORPHINE DELIVERED PER SHIFT SCH (22:00)
[2017-11-01] MEDS ORDERED: FUROSEMIDE 20 MG/2 ML VIAL ONE (23:11)
[2017-11-01] MEDS ORDERED: FUROSEMIDE 20 MG/2 ML VIAL IV ONE (23:15)
[2017-11-01] MEDS ORDERED: FUROSEMIDE 20 MG/2 ML VIAL IV PUSH PRN (23:15)
[2017-11-01] MEDS ORDERED: NS + KCL 20 MEQ INJ 1,000 ML ONE (23:58)
[2017-11-02] VITALS (18 sets, daily range): BP systolic 98–128; BP diastolic 53–63; PULSE 57–82; RESP 20; TEMP 97.9–98.1; O2SAT 95–96
[2017-11-02] MEDS ORDERED: SODIUM CHLOR 0.9% 1000 ML INJ 1,000 ML IV ONE (00:30)
[2017-11-02] MEDS ORDERED: NS + KCL 20 MEQ INJ 1,000 ML IV SCH ×2 (00:30→08:45)
[2017-11-02] MEDS: KETOROLAC TROMETHAMINE 30 MG/ML (IVP) VIAL IVP SCH ×4 (01:00→17:58)
[2017-11-02] MEDS: metroNIDAZOLE 500 MG INJ 100 ML IV SCH ×2 (02:00→10:00)
[2017-11-02 05:39] LABS: AUTOMATED NEUTROPHIL # 10.5 TH/MM3 (1.8-7.7); BASOPHIL % 0.2 % (0.0-2.0); HEMATOCRIT 34.6 % (35.0-46.0); HEMOGLOBIN 11.3 GM/DL (11.6-15.3); LYMPH % 5.3 % (9.0-44.0); LYMPHOCYTE # 0.6 TH/MM3 (1.0-4.8); MEAN CELL VOLUME 93.6 FL (80.0-100.0); MEAN CORPUSCULAR HEMOGLOBIN 30.6 PG (27.0-34.0); MEAN CORPUSCULAR HGB CONC 32.7 % (32.0-36.0); MEAN PLATELET VOLUME 8.2 FL (7.0-11.0); MONO % 7.1 % (0.0-8.0); MONOCYTE # 0.9 TH/MM3 (0-0.9); NEUT % 87.4 % (16.0-70.0); PLATELET COUNT 209 TH/MM3 (150-450); RED BLOOD COUNT 3.69 MIL/MM3 (4.00-5.30); RED CELL DISTRIBUTION WIDTH 13.9 % (11.6-17.2)
[2017-11-02 05:58] LABS: BICARBONATE 21.5 MEQ/L (21.0-32.0); CALCIUM 7.2 MG/DL (8.5-10.1); CREATININE 1.23 MG/DL (0.50-1.00)
[2017-11-02] MEDS: PCA - TOTAL MG MORPHINE DELIVERED PER SHIFT SCH ×3 (06:00→22:00)
[2017-11-02 06:19] LABS: CALCIUM-PROTEIN CORRECTED 7.9 MG/DL (8.5-10.1); TOTAL PROTEIN 5.7 GM/DL (6.4-8.2)
[2017-11-02] MEDS ORDERED: SODIUM CHLORID 0.9% 500 ML INJ 500 ML IV ONE (08:45)
[2017-11-02] MEDS: PANTOPRAZOLE SODIUM 40 MG VIAL IVP SCH (08:57)
[2017-11-02] MEDS: METOPROLOL TARTRATE 50 MG TAB PO SCH (08:57)
[2017-11-02] MEDS: LISINOPRIL 20 MG TAB PO SCH (08:57)
[2017-11-02] MEDS: DEXTROSE 5%-LACTATED RING INJ 1,000 ML IV SCH ×2 (09:15→14:48)
[2017-11-02] MEDS: FUROSEMIDE 20 MG/2 ML VIAL IV PUSH SCH ×2 (10:00→23:31)
[2017-11-02] MEDS: HEPARIN SODIUM - SQ 10,000 UNITS/ML VIAL SQ SCH ×2 (11:47→23:32)
[2017-11-02] MEDS: ONDANSETRON HCL 4 MG/2 ML VIAL IV PUSH PRN ×2 (16:13→23:32)
[2017-11-02] MEDS: METOPROLOL TARTRATE 25 MG TAB PO SCH (23:32)
[2017-11-03] VITALS (22 sets, daily range): BP systolic 98–160; BP diastolic 52–68; PULSE 55–89; RESP 18–20; TEMP 98–98.8; O2SAT 93–98
[2017-11-03] MEDS: DEXTROSE 5%-LACTATED RING INJ 1,000 ML IV SCH ×3 (02:06→17:01)
[2017-11-03] MEDS: KETOROLAC TROMETHAMINE 30 MG/ML (IVP) VIAL IVP SCH ×4 (02:14→18:03)
[2017-11-03] MEDS: PCA - TOTAL MG MORPHINE DELIVERED PER SHIFT SCH ×3 (05:40→21:02)
[2017-11-03 05:51] LABS: AUTOMATED NEUTROPHIL # 5.4 TH/MM3 (1.8-7.7); BASOPHIL % 0.4 % (0.0-2.0); EOSINOPHIL # 0.2 TH/MM3 (0-0.4); EOSINOPHIL % 2.5 % (0.0-4.0); HEMOGLOBIN 10.8 GM/DL (11.6-15.3); LYMPH % 17.8 % (9.0-44.0); LYMPHOCYTE # 1.4 TH/MM3 (1.0-4.8); MEAN CELL VOLUME 91.8 FL (80.0-100.0); MEAN CORPUSCULAR HEMOGLOBIN 31.1 PG (27.0-34.0); MEAN CORPUSCULAR HGB CONC 33.9 % (32.0-36.0); MEAN PLATELET VOLUME 8.5 FL (7.0-11.0); MONOCYTE # 0.8 TH/MM3 (0-0.9); NEUT % 69.3 % (16.0-70.0); PLATELET COUNT 190 TH/MM3 (150-450); RED BLOOD COUNT 3.48 MIL/MM3 (4.00-5.30); WHITE BLOOD COUNT 7.8 TH/MM3 (4.0-11.0)
[2017-11-03 06:24] LABS: BICARBONATE 23.1 MEQ/L (21.0-32.0); CALCIUM 7.3 MG/DL (8.5-10.1); CREATININE 1.14 MG/DL (0.50-1.00)
[2017-11-03 06:41] LABS: CALCIUM-PROTEIN CORRECTED 8.2 MG/DL (8.5-10.1); TOTAL PROTEIN 5.5 GM/DL (6.4-8.2)
[2017-11-03] MEDS: LISINOPRIL 20 MG TAB PO SCH (09:00)
[2017-11-03] MEDS: METOPROLOL TARTRATE 50 MG TAB PO SCH (09:07)
[2017-11-03] MEDS: ONDANSETRON HCL 4 MG/2 ML VIAL IV PUSH PRN (09:08)
[2017-11-03] MEDS: FUROSEMIDE 20 MG/2 ML VIAL IV PUSH SCH ×2 (09:08→20:57)
[2017-11-03] MEDS: PANTOPRAZOLE SODIUM 40 MG VIAL IVP SCH (09:08)
[2017-11-03] MEDS: HEPARIN SODIUM - SQ 10,000 UNITS/ML VIAL SQ SCH (12:19)
[2017-11-03] MEDS: METOPROLOL TARTRATE 25 MG TAB PO SCH (20:55)
[2017-11-04] VITALS (27 sets, daily range): BP systolic 109–170; BP diastolic 53–79; PULSE 54–88; RESP 14–18; TEMP 97.9–99; O2SAT 94–96
[2017-11-04] MEDS: HEPARIN SODIUM - SQ 10,000 UNITS/ML VIAL SQ SCH ×3 (00:07→23:56)
[2017-11-04] MEDS: KETOROLAC TROMETHAMINE 30 MG/ML (IVP) VIAL IVP SCH ×2 (00:08→06:02)
[2017-11-04] MEDS: DEXTROSE 5%-LACTATED RING INJ 1,000 ML IV SCH ×2 (03:01→13:25)
[2017-11-04 05:56] LABS: BASOPHIL % 0.7 % (0.0-2.0); EOSINOPHIL # 0.3 TH/MM3 (0-0.4); EOSINOPHIL % 5.9 % (0.0-4.0); HEMATOCRIT 32.4 % (35.0-46.0); LYMPH % 28.4 % (9.0-44.0); LYMPHOCYTE # 1.6 TH/MM3 (1.0-4.8); MEAN CELL VOLUME 92.1 FL (80.0-100.0); MEAN CORPUSCULAR HEMOGLOBIN 31.2 PG (27.0-34.0); MEAN CORPUSCULAR HGB CONC 33.8 % (32.0-36.0); MEAN PLATELET VOLUME 8.7 FL (7.0-11.0); MONO % 12.1 % (0.0-8.0); MONOCYTE # 0.7 TH/MM3 (0-0.9); NEUT % 52.9 % (16.0-70.0); PLATELET COUNT 192 TH/MM3 (150-450); RED BLOOD COUNT 3.51 MIL/MM3 (4.00-5.30); WHITE BLOOD COUNT 5.8 TH/MM3 (4.0-11.0)
[2017-11-04] MEDS: PCA - TOTAL MG MORPHINE DELIVERED PER SHIFT SCH (06:00)
[2017-11-04 06:25] LABS: BICARBONATE 25.6 MEQ/L (21.0-32.0); CREATININE 1.18 MG/DL (0.50-1.00)
[2017-11-04 06:37] LABS: CALCIUM-PROTEIN CORRECTED 7.9 MG/DL (8.5-10.1); TOTAL PROTEIN 5.3 GM/DL (6.4-8.2)
[2017-11-04] MEDS: PANTOPRAZOLE SODIUM 40 MG VIAL IVP SCH (10:57)
[2017-11-04] MEDS: ONDANSETRON HCL 4 MG/2 ML VIAL IV PUSH PRN ×3 (10:58→21:56)
[2017-11-04] MEDS: FUROSEMIDE 20 MG/2 ML VIAL IV PUSH SCH ×2 (10:58→21:56)
[2017-11-04] MEDS: LISINOPRIL 20 MG TAB PO SCH (10:59)
[2017-11-04] MEDS: METOPROLOL TARTRATE 50 MG TAB PO SCH (10:59)
--- NOTE | 2017-11-04 12:55 | HHI.PR ---
Subjective Remarks POD#3 s/p robotic sigmoid resection nausea Objective Vital Signs Date Time Temp Pulse Resp B/P (MAP) Pulse Ox O2 Delivery O2 Flow Rate FiO2 11/04/17 09:00 88 11/04/17 08:11 94 21 11/04/17 08:00 81 11/04/17 07:15 98.0 74 16 150/65 (93) 94 11/04/17 07:00 74 11/04/17 06:41 17 11/04/17 06:00 77 11/04/17 06:00 18 11/04/17 05:00 70 11/04/17 04:00 71 11/04/17 03:00 97.9 67 18 109/53 (71) 95 11/04/17 03:00 68 11/04/17 02:00 64 11/04/17 01:00 74 11/04/17 00:00 69 11/03/17 23:00 98.0 66 20 160/66 (97) 93 11/03/17 23:00 64 11/03/17 22:00 73 11/03/17 21:02 18 11/03/17 21:00 65 11/03/17 20:00 64 11/03/17 19:58 18 11/03/17 19:15 65 11/03/17 19:15 98.0 69 20 152/68 (96) 94 11/03/17 17:00 64 11/03/17 16:00 55 11/03/17 15:00 60 11/03/17 15:00 98.8 61 20 114/59 (77) 98 11/03/17 14:00 61 11/03/17 13:00 61 I/O 11/03/17 11/03/17 11/03/17 11/04/17 11/04/17 11/04/17 07:00 15:00 23:00 07:00 15:00 23:00 Intake Total 1620 ml 720 ml 480 ml Output Total 1300 ml 900 ml 1200 ml Balance 320 ml -180 ml -720 ml Intake Oral 240 ml 720 ml 480 ml IV Total 1380 ml Output Urine Total 1300 ml 900 ml 1200 ml # Bowel Movements 0 Result Diagram: 11/04/17 0504 11/04/17 0504 Objective Remarks appears uncomfortable abdomen soft, obese, tender Assessment and Plan Assessment and Plan Mobilize stop IV narcotics Elizabeth Castillo MD Nov 04, 2017 12:55
[2017-11-04] MEDS: ENALAPRILAT 1.25 MG/ML VIAL IV PUSH PRN ×2 (16:31→17:27)
[2017-11-04] MEDS: METOPROLOL TARTRATE 25 MG TAB PO SCH (21:55)
[2017-11-05] VITALS (19 sets, daily range): BP systolic 150–175; BP diastolic 66–81; PULSE 55–75; RESP 16–18; TEMP 97.6–98.7; O2SAT 93–98
[2017-11-05] MEDS: DEXTROSE 5%-LACTATED RING INJ 1,000 ML IV SCH ×2 (02:04→07:47)
[2017-11-05] MEDS: PANTOPRAZOLE SODIUM 40 MG VIAL IVP SCH (07:42)
[2017-11-05] MEDS: METOPROLOL TARTRATE 50 MG TAB PO SCH (07:42)
[2017-11-05] MEDS: LISINOPRIL 20 MG TAB PO SCH (07:42)
--- NOTE | 2017-11-05 10:04 | HHI.PR ---
Subjective Remarks POD#4 s/p robotic sigmoid resection no further nausea tired Objective Vital Signs Date Time Temp Pulse Resp B/P (MAP) Pulse Ox O2 Delivery O2 Flow Rate FiO2 11/05/17 08:00 97.6 65 16 175/81 (112) 93 11/05/17 06:19 68 11/05/17 05:14 62 11/05/17 04:26 63 11/05/17 03:36 98.0 75 16 154/70 (98) 95 11/05/17 03:33 58 11/05/17 02:26 62 11/05/17 01:00 61 11/05/17 00:18 95 21 11/05/17 00:00 68 11/04/17 23:35 98.4 62 16 158/68 (98) 95 11/04/17 23:25 72 11/04/17 22:30 70 11/04/17 21:00 54 11/04/17 20:15 60 11/04/17 19:25 69 11/04/17 19:25 98.3 67 17 161/71 (101) 95 11/04/17 18:00 63 11/04/17 17:00 68 11/04/17 16:00 68 11/04/17 15:00 73 11/04/17 15:00 99.0 73 16 170/79 (109) 96 11/04/17 14:00 77 11/04/17 13:00 68 11/04/17 12:00 64 11/04/17 11:00 78 11/04/17 11:00 98.4 86 14 161/72 (101) 95 I/O 11/04/17 11/04/17 11/04/17 11/05/17 11/05/17 11/05/17 07:00 15:00 23:00 07:00 15:00 23:00 Intake Total 480 ml 960 ml 360 ml Output Total 1200 ml 1300 ml Balance -720 ml 960 ml -940 ml Intake Oral 480 ml 960 ml 360 ml Output Urine Total 1200 ml 1300 ml # Voids 3 # Bowel Movements 2 1 Result Diagram: 11/04/17 0504 11/04/17 0504 Objective Remarks comfortable abdomen soft, obese, tender Wounds clean Assessment and Plan Assessment and Plan HR down secondary to Metoprolol, BP stable Mobilize advance diet discharge planning Elizabeth Castillo MD 6, 2018 10:04
[2017-11-05] MEDS: HEPARIN SODIUM - SQ 10,000 UNITS/ML VIAL SQ SCH (10:53)
[2017-11-05] MEDS: FUROSEMIDE 20 MG/2 ML VIAL IV PUSH SCH ×2 (10:54→21:33)
[2017-11-05] MEDS: METOPROLOL TARTRATE 25 MG TAB PO SCH (21:33)
[2017-11-06] VITALS (11 sets, daily range): BP systolic 162–173; BP diastolic 68–72; PULSE 50–77; RESP 18; TEMP 98.5–98.6; O2SAT 93–96
[2017-11-06] MEDS: HEPARIN SODIUM - SQ 10,000 UNITS/ML VIAL SQ SCH
--- NOTE | 2017-11-06 08:17 | HHI.FF ---
Face to Face Verification Diagnosis: (1) Diverticulitis Physical Therapy Order: Improve ambulation, Strength and gait training I have seen patient Lidia Jones on 11/06/17. My clinical findings support the need for the requested home health care services because: Deconditioned w/ increased weakness I certify that my clinical findings support that this patient is homebound because: Post-op weakness Elizabeth Castillo MD Nov 06, 2017 08:17
--- NOTE | 2017-11-06 08:17 | HHI.PR ---
Subjective Remarks POD#5 s/p robotic sigmoid resection comfortable, wants to go home Objective Vital Signs Date Time Temp Pulse Resp B/P (MAP) Pulse Ox O2 Delivery O2 Flow Rate FiO2 11/06/17 06:00 77 11/06/17 05:00 66 11/06/17 04:00 64 11/06/17 03:00 98.5 76 18 162/68 (99) 95 11/06/17 03:00 70 11/06/17 02:00 70 11/06/17 01:00 50 11/06/17 00:00 64 11/05/17 23:00 98.7 68 16 150/67 (94) 98 11/05/17 23:00 58 11/05/17 22:00 70 11/05/17 21:00 64 11/05/17 20:00 98.4 75 18 162/74 (103) 97 11/05/17 20:00 75 11/05/17 16:51 97.7 63 16 152/68 (96) 94 11/05/17 16:48 65 11/05/17 12:16 60 11/05/17 12:06 96 11/05/17 11:04 97.6 55 18 157/66 (96) 96 I/O 11/05/17 11/05/17 11/05/17 11/06/17 11/06/17 11/06/17 07:00 15:00 23:00 07:00 15:00 23:00 Intake Total 360 ml 300 ml 630 ml Output Total 1300 ml 700 ml 1300 ml Balance -940 ml -400 ml -670 ml Intake Oral 360 ml 300 ml 630 ml Output Urine Total 1300 ml 700 ml 1300 ml # Voids 1 5 # Bowel Movements 1 1 2 1 Result Diagram: 11/04/17 0504 11/04/17 0504 Objective Remarks comfortable abdomen soft, obese, tender Wounds clean Assessment and Plan Assessment and Plan Home today Elizabeth Castillo MD Nov 06, 2017 08:16
[2017-11-06] MEDS ORDERED: OXYC1TAB63 PO (08:23)
--- NOTE | 2017-11-06 08:33 | MD ---
cc: Elizabeth Castillo MD DATE OF DISCHARGE: ADMISSION DIAGNOSIS: Diverticulitis. DISCHARGE DIAGNOSIS: Diverticulitis. PROCEDURES: 1. Cystoscopy with placement of bilateral ureteral catheters. 2. Robotic sigmoid resection. HOSPITAL COURSE: Patient is a 77-year-old female with a history of chronic recurrent diverticulitis. She came into the hospital after an outpatient bowel prep. She was taken to operating room where she underwent the above procedures. Postoperatively, she did well, although she had some problems with dehydration and some low heart rate. This eventually came under control, and she was discharged to home on 11/06/2017 with physical therapy. Final pathology was not available at the time of discharge. Elizabeth Castillo MD KW/LK , 08:26 AM , 08:31 AM
[2017-11-06] MEDS: FUROSEMIDE 20 MG/2 ML VIAL IV PUSH SCH (09:10)
[2017-11-06] MEDS: PANTOPRAZOLE SODIUM 40 MG VIAL IVP SCH (09:10)
[2017-11-06] MEDS: METOPROLOL TARTRATE 50 MG TAB PO SCH (09:10)
[2017-11-06] MEDS: LISINOPRIL 20 MG TAB PO SCH (09:11)
== END 2017-11-06 11:43 | disposition home health service (06) | DRG 331 ==
LOC: HSDI 06:11 → HCPC 11-02 01:40 → HCIN 11-05 08:48
PROVIDERS: ADMIT Colon & Rectal Surgery; ATTEND Colon & Rectal Surgery
PROC: 8E0W4CZ Robotic Assisted Procedure of Trunk Region, Percutaneous Endoscopic Approach (ICD-10-PCS; 2017-11-01)
PROC: 0T788DZ Dilation of Bilateral Ureters with Intraluminal Device, Via Natural or Artificial Opening Endoscopic (ICD-10-PCS; 2017-11-01)
PROC: 0DTN0ZZ Resection of Sigmoid Colon, Open Approach (ICD-10-PCS; principal; 2017-11-01 08:48)
PROC: 0DBP0ZZ Excision of Rectum, Open Approach (ICD-10-PCS; 2017-11-01 08:48)
DX: K57.32 Diverticulitis of large intestine without perforation or abscess without bleeding (principal); E86.0 Dehydration; I10 Essential (primary) hypertension; K21.9 Gastro-esophageal reflux disease without esophagitis; K57.30 Diverticulosis of large intestine without perforation or abscess without bleeding; D25.9 Leiomyoma of uterus, unspecified; T44.7X5A Adverse effect of beta-adrenoreceptor antagonists, initial encounter; Z87.891 Personal history of nicotine dependence
CPT/HCPCS: 76937; 80048; 84155; 85025; 86850; 86900; 86901; 88305; 88307; 94150; C1769; C9113; J0690; J1100; J1644; J1885; J1940; J2250; J2270; J2370; J2405; J2710; J3010; J3480; J7030; J7040; J7120; J7121